=== PATIENT | male | born 1955 | race Caucasian/White ===

== ENCOUNTER 2021-11-12 14:38 | Observation (INO) | payer MEDICARE, OTHER, SELFPAY ==
[2021-11-12] VITALS (10 sets, daily range): BP systolic 127–152; BP diastolic 86–108; PULSE 74–87; RESP 14–20; TEMP 36.3–36.8; O2SAT 94–99; BMI 29.9
--- NOTE | ~2021-11-12 | XR_ITS ---
EXAMINATION: XR chest 1V portable DATE: 11/13/2021 10:51 INDICATION: Acute cholecystitis. Preop. TECHNIQUE: A single frontal view of the chest was obtained. COMPARISON: CT abdomen and pelvis 11/12/2021 FINDINGS: There is a 10 mm nodule in right lung upper lobe. There is a left posterior diaphragmatic h ernia that contained fat on the recent CT. No pleural effusion or pneumothorax. The heart size is nor mal. IMPRESSION: 1. 10 mm nodule in right lung upper lobe that is indeterminate for malignancy. Noncontrast chest CT i s recommended. Reviewed, dictated and finalized at location B. IMPRESSION: 1. 10 mm nodule in right lung upper lobe that is indeterminate for malignancy. Noncontrast chest CT is recommended.
--- NOTE | ~2021-11-12 | US_ITS ---
EXAMINATION: US carotid duplex BI DATE: 11/13/2021 12:54 INDICATION: Syncope. TECHNIQUE: Grayscale, color Doppler, and pulsed Doppler images of the cervical carotid arteries were obtained. The degree of vessel stenosis is placed in one of the following categories: normal, <50%, 5 0-69%, >=70% but less than near-occlusion, near-occlusion, or total occlusion. Note that percent sten osis relative to normal distal artery lumen diameter is indirectly measured from velocity measurement s as described by Jonh, et al. Radiology 2003; 229:340-346. COMPARISON: None. FINDINGS: RIGHT: The right common carotid artery (CCA) peak systolic velocity (PSV) is 88 cm/s. The right internal car otid artery (ICA) PSV is 75 cm/s. The right ICA end-diastolic velocity (EDV) is 36 cm/s. The right IC A/CCA PSV ratio is 0.9. Grayscale and color Doppler images yield an estimate of <50% diameter reducti on from plaque in the ICA. There is antegrade flow in the right vertebral artery. LEFT: The left CCA PSV is 86 cm/s. The left ICA PSV is 92 cm/s. The left ICA EDV is 46 cm/s. The left ICA/C CA PSV ratio is 1.1. Grayscale and color Doppler images yield an estimate of <50% diameter reduction from plaque in the ICA. There is antegrade flow in the left vertebral artery. IMPRESSION: 1. <50% stenosis in the right internal carotid artery. 2. <50% stenosis in the left internal carotid artery. Reviewed, dictated and finalized at location B.
--- NOTE | ~2021-11-12 | XR_ITS ---
EXAMINATION: 11/13/2021 15:38 DATE: 11/13/2021 15:47 CDT INDICATION: Cholecystectomy, intraoperative cholangiogram TECHNIQUE: Intraoperative cholangiogram with 1 contrast run(s) provided for review. FINDINGS: There is cannulation and contrast administration into the cystic duct remnant. There is no discrete filling defect in the common bile duct to suggest common bile duct stone. Contrast flows fr eely into the duodenum. IMPRESSION: 1. Patent cystic duct remnant and common bile duct, without common bile duct stone. Reviewed, dictated and finalized at location A. IMPRESSION: 1. Patent cystic duct remnant and common bile duct, without common bile duct s tone.
--- NOTE | ~2021-11-12 | CT_ITS ---
EXAMINATION: CT brain wo con DATE: 11/13/2021 12:25 INDICATION: Syncope. TECHNIQUE: Computed tomography (CT) of the head was performed without intravenous contrast. The mA wa s adjusted according to patient size. Iterative reconstruction technique was employed. The dose-lengt h product was 681.00 mGy-cm. COMPARISON: Head CT 11/29/2006 FINDINGS: There are scattered areas of low attenuation in the cerebral white matter, which is within normal limits for the patient's age. There is no intracranial hemorrhage, acute infarction, or abnorm al intracranial mass lesion. The ventricles are normal in size. The paranasal sinuses are clear. Ther e are likely changes of ocular lens replacement surgeries. The mastoid air cells are normal. IMPRESSION: 1. Normal aging brain. Reviewed, dictated and finalized at location B. IMPRESSION: 1. Normal aging brain.
--- NOTE | ~2021-11-12 | CT_ITS ---
EXAMINATION: CT abdomen pelvis w con DATE: 11/12/2021 17:23 INDICATION: RUQ abd pain TECHNIQUE: Computed tomography (CT) of the abdomen and pelvis was performed with 100 mL Omnipaque-300 intravenous contrast. Automated exposure control and iterative reconstruction technique were employe d. The dose-length product was 845.59 mGy-cm. COMPARISON: 02/27/2009. FINDINGS: Lower thorax: Unremarkable Liver: Left lobe hypodensity, too small to characterize but most likely representing a cyst. Biliary/Gallbladder: There is pericholecystic fluid and inflammatory change, with mucosal hyperemia. Dependent gallbladder sludge/stones. No bile duct dilation. Pancreas: No mass or duct dilation. Spleen: Normal. Adrenals:No mass. Kidneys: Bilateral hypodensities, too small to characterize but statistically most likely represent c ysts. Nonobstructing right mid pole calcification. No hydronephrosis. Mild perinephric stranding. GI tract: No small or large bowel dilation. Normal appendix. Mesentery/Peritoneum: No ascites, mass, or free air. Retroperitoneum: No mass. Abdominal atherosclerosis. Pelvis: Marked bladder distention, reasonably secondary to outlet obstruction. Soft Tissues: Soft tissues and body wall unremarkable. Bones: No acute osseous finding. IMPRESSION: CT findings suggestive of acute cholecystitis. Reviewed, dictated and finalized at location K.
[2021-11-12 15:02] LABS: Basophils Absolute Auto 0.1 K/mm3 (0.0-0.1); Basophils Percent Auto 0.7 % (0.2-1.2); Eosinophils Absolute Auto 0.1 K/mm3 (0-0.3); Eosinophils Percent Auto 1.9 % (0-4.4); Hematocrit 45.4 % (42.0-52.0); Hemoglobin 14.8 g/dL (14.0-18.0); Immature Granulocyte Absolute 0.04 K/mm3 (0.00-0.031); Immature Granulocyte Percent A 0.6 % (0-0.5); Lymphocytes Absolute Auto 1.57 K/mm3 (0.9-3.2); Lymphocytes Percent Auto 21.6 % (18.3-44.2); Mean Corpuscular HGB Conc 32.6 g/dl (32-36); Mean Corpuscular Hemoglobin 27.6 pg (26-34); Mean Corpuscular Volume 84.5 fl (80-100); Mean Platelet Volume 9.8 fl (7.4-10.4); Monocytes Absolute Auto 0.5 K/mm3 (0.1-0.6); Monocytes Percent Auto 6.3 % (2.6-8.5); Neutrophils Percent Auto 68.9 % (45.5-73.1); Platelet Count Result 229 k/mm3 (150-375); Red Blood Count 5.37 M/mm3 (4.6-6.20); White Blood Count 7.3 K/mm3 (4.5-10.0)
[2021-11-12 15:08] LABS: Appearance Urine Clear (Clear); Bilirubin Urine Negative (Negative); Blood Urine Negative (Negative); Color Urine Yellow (Yellow); Glucose Urine UA Negative (Negative); Ketones Urine Negative (Negative); Leukocyte Esterase Ur Negative LEU/UL (Negative); Nitrate Urine Negative (Negative); Protein Urine Negative (Negative); Urobilinogen Urine 0.2 mg/dL (<2.0)
[2021-11-12 15:13] LABS: Add Urine Microscopic? NO
[2021-11-12 15:14] LABS: Alanine Aminotransferase 18 U/L (6-50); Albumin Level 4.4 g/dL (3.5-5.1); Alkaline Phosphatase 82 U/L (38-126); Anion Gap 7 mmol/L (8-16); Aspartate Amino Transferase 25 U/L (17-59); Bilirubin,Total 1.6 mg/dL (0.2-1.3); Blood Urea Nitrogen 11 mg/dL (9-20); Calcium 8.9 mg/dL (8.4-10.2); Carbon Dioxide 27 mmol/L (22-30); Chloride 98 mmol/L (98-107); Estimated Glomerular Filt Rate > 60; Glucose 119 mg/dL (65-110); Lipase 50 U/L (23-300); Potassium 4.4 mmol/L (3.4-5.0); Sodium 132 mmol/L (137-145)
--- NOTE | 2021-11-12 15:17 | ECG_ITS ---
Measurements Intervals [place] Rate: 71 P: 66 ND: 193 QRS: 29 QRSD: 97 T: 59 QT: 356 QTc: 387 Interpretive Statements SINUS RHYTHM INCOMPLETE RIGHT BUNDLE BRANCH BLOCK BASELINE ARTIFACT- I, III, AVR, AVL, AVF, V3-V4 BORDERLINE ECG Electronically Signed On 11-12-2021 15:49:37 CDT by Pradeep Lei D.O.
--- NOTE | 2021-11-12 16:52 | ED.ABDPAIN ---
HPI - Abdominal Pain General Chief Complaint: Abdominal Pain Stated Complaint: ruq pain Time Seen by Provider: 11/12/21 16:39 Source: patient Mode of arrival: ambulatory Limitations: no limitations History of Present Illness HPI narrative: 66 y/o male presents to the ER today for RUQ abdominal pain that started yesterday. It was pretty sharp and intense yesterday. Today it is more tender sore. He has had feeling of dizziness and lightheadedness today. He has been drinking fluids but poor appetite for solid food. No fever or chills. No nausea or vomiting. He still has gallbladder. Denies history of abdominal surgeries. He denies chest pain. No palpitations. denies cough or shortness of breath. Related Data Allergies Allergy/AdvReac Type Severity Reaction Status Date / Time moxifloxacin Allergy Unknown Verified 11/12/21 18:16 Review of Systems Constitutional: Constitutional: Denies chills, Reports fatigue and Denies fever(s) Eyes: Eyes: Reports no additional eye complaints ENT: Reports dizziness and Denies sore throat Cardiovascular: Cardiovascular: Denies chest pain and Denies radiating jaw, neck or arm pain Respiratory: Respiratory: Denies cough, Denies dyspnea and Denies wheezing Gastrointestinal: Gastrointestinal: Reports abdominal pain, Denies constipation, Denies diarrhea, Denies nausea and Denies vomiting Genitourinary: Genitourinary: Denies hematuria and Denies dysuria Musculoskeletal: Musculoskeletal: Denies back pain Integumentary/Breasts: Skin/Breast: Denies rash Neurologic: Denies dizziness Psychiatric: Psychiatric: Denies anxiety and Denies depression Endocrine: Endocrine: Denies fatigue Hematologic/Lymphatic: Hematologic/Lymphatic: Reports no additional hematologic/lymphatic complaints Allergic/Immunologic: Allergic/Immunologic: Reports no additional allergic/immunologic complaints [facility] Past Medical History Medical History BPH (benign prostatic hyperplasia) Chronic neck pain GERD (gastroesophageal reflux disease) Hyperlipidemia Hypertension Surgical History Surgical History History of prostate surgery Social History Social History (Updated 11/12/21 @ 18:46 by Ary Rosenbaum APRN) Smoking status: Former smoker Tobacco type: cigarettes Second hand tobacco smoke exposure: No Smoking end date: 06/29/10 Alcohol intake: current Drinks per week: 14 Alcohol use details: drinks 2 melanie booth daily Substance use: never Living arrangements: alone Exam Const: General: no acute distress and alert Orientation/consciousness: patient oriented x3 HENMT: Head: normal to inspection Eyes: Conjunctivae: conjunctivae normal Pupils: Equal, round and reactive pupils present Neck: Neck: normal visual inspection Chest: Chest palpation & inspection: normal inspection of the chest Resp: Effort & Inspection: normal respiratory effort Auscultation: clear to auscultation bilaterally Cardio: Rate: regular rate Rhythm: regular rhythm GI: GI Palp: Yes Soft to palpation, Yes Tenderness to palpation present (GI) (RUQ tenderness) and Yes Guarding due to palpation present (GI) : Testes: Testes normal Back/Spine/Pelvis: Back: no CVA tenderness Skin: General skin exam: normal color Neuro: General: patient oriented x3 and moves all extremities Extrem: General: normal to inspection Psych: Mental Status: mental status grossly normal Affect: normal affect Course Course Emergency Course: 1800 Discussed with general trivedi, Dr. Meyers, would like patient admitted to hospitalist service, clear liquids tonight then NPO after midnight. Pt updated on plan. 1814 [place] does not have beds. Okay to admit here. 1829 Discussed with Aleyda Dooley, accepting patient for observation admission for Dr. Thurman, acute cholecystitis. Vital Signs Vital signs: Marily
[2021-11-12] MEDS: SODIUM CHLORIDE 0.9% IV 1,000 ML 125 ML IV CONT (20:33)
--- NOTE | 2021-11-12 21:58 | ADMGEN ---
This patient, Jason Richards, was admitted to 3 [facility] Surg Room 309-01. Patient/family oriented to hospital policies and general routines including ID bracelet, bed and alarms, visiting hours, pain management, procedures, bathroom and other care routines, personal items, smoking policy, room service/diet, and visiting hours. Information on how to activate the Rapid Response Team has been discussed. Patient/Family are encouraged to report perceived risks to care and to ask questions if they do not understand what they are told or what they should do.
[2021-11-13] VITALS (19 sets, daily range): BP systolic 97–184; BP diastolic 64–99; PULSE 64–104; RESP 11–20; TEMP 36.2–36.8; O2SAT 90–99
--- NOTE | 2021-11-13 | ECHO_ITS ---
Patient Info Name: Jason Richards Age: 66 years : 1955 Gender: Male Ht: 68 in Wt: 196 lbs BSA: 2.09 m2 HR: 78 bpm BP: 130 / 89 mmHg Technical Quality: Fair Exam Date: 11/13/2021 1:17 PM Exam Location: [facility] Exam Room: 309 Patient Status: Inpatient Admit Date: 11/12/2021 Staff Ordering Physician: Florencia Rivera PA-C Drain Layer: Rosalia Benito RDCS Attending Provider: Florencia Rivera PA-C Referring Physician: Miguel MCKEON; Exam Type: CA echo doppler color flow Study Info Indications - SYNCOPE PRE OP Complete two-dimensional, color flow and Doppler transthoracic echocardiogram is performed. Summary 1. Complete two-dimensional, color flow and Doppler transthoracic echocardiogram is performed. 2. Left ventricular chamber dimension is normal. 3. Left ventricular systolic function is normal, estimated at 60-65%. 4. The left ventricular diastolic function is grade I diastolic dysfunction. 5. E/e' 7 is not elevated. Left Ventricle E/e' 7 is not elevated. Left ventricular chamber dimension is normal. Left ventricular systolic function is normal, estimated at 60-65%. The left ventricular diastolic function is grade I diastolic dysfunction. Right Ventricle Right ventricular chamber dimension is normal. Right ventricular systolic function is normal. Left Atria Left atrial chamber dimension is normal. Right Atria Right atrial chamber dimension is normal. Aortic Valve The aortic valve is trileaflet. There is no aortic valve stenosis. There is no aortic valve regurgitation. Pulmonic Valve There is no pulmonic regurgitation. Mitral Valve There is no mitral valve stenosis. There is no mitral valve regurgitation. Tricuspid Valve There is no tricuspid valve regurgitation. Pericardium/Pleural There is no pericardial effusion. Inferior Vena Cava Normal inferior vena cava with >50% collapse upon inspiration consistent with normal right atrial pressure, 5 mmHg. Aorta The aortic root size at the sinus of Valsalva is normal. Left Ventricular Outflow Tract Name Value Normal LVOT 2D LVOT Diameter 2.1 cm LVOT Doppler LVOT Peak Gradient 5 mmHg LVOT Mean Gradient 3 mmHg LVOT VTI 25 cm LVOT VTI/AV VTI Ratio 0.7 LVOT Stroke Volume 85 ml LVOT CO 14.9 l/min LVOT CI 7.1 l/min/m2 Pulmonic Valve Name Value Normal PV Doppler PV Peak Gradient 2 mmHg Mitral Valve Name Value Normal MV Doppler --
--- NOTE | 2021-11-13 02:08 | PC.NURSE ---
Patient educated on the importance of fall prevention while hospitalized. Waterproofer Helper discussed with patient his verbalization of being dizzy on admission and therefore should have proper fall precautions in place, which would include the use of a bed alarm. After multiple conversations the patient denies any dizziness or being light headed. Patient verbally refuses bed alarm. Patient was educated on the call light and the importance of calling the staff for assistance when ambulating.
[2021-11-13] MEDS: SODIUM CHLORIDE 0.9% IV 1,000 ML 125 ML IV CONT (05:12)
--- NOTE | 2021-11-13 09:26 | PM.IMHP ---
H&P: HPI History of Present Illness Date/Time: 11/13/21 09:26 Chief Complaint: abdominal pain Narrative: Pt is a 66 yo male w/ hx of HTN, HLD, GERD, BPH, who presented to the ED for RUQ pain x 4 days. He describes the pain as achey in nature and it has been waxing and waning. Non radiating. Does not seem to be associated with meals however he notes decreased appetite. He has been trying to drink water but states he has not eaten much and did not eat anything yesterday. He states yesterday while sitting on his couch he felt dizzy and light headed. He reports diarrhea ever since taking Miralax 5 days ago. No nausea, vomiting, fevers, chills. CT abd/pelv in the ED significant for acute cholecystitis. Patient is being admitted as observation status in this setting. Review of Systems Review of Systems: General: Denies fevers Eyes: Denies vision changes ENT: Denies nasal congestion or sore throat Respiratory: Denies cough or shortness of breath Cardiovascular: Denies chest pain or lower extremity edema Gastrointestinal: + abdominal pain and diarrhea Genitourinary: Denies dysuria Musculoskeletal: Denies back pain, +chronic neck pain Neurological: Denies headache or motor weakness Integumentary: Denies rash PMFSH Past Medical History Medical History (Updated 11/13/21 @ 09:34 by Florencia Rivera PA-C) BPH (benign prostatic hyperplasia) Chronic neck pain GERD (gastroesophageal reflux disease) Hyperlipidemia Hypertension Surgical History Surgical History History of prostate surgery Family History Family History Mother Cancer Social History Social History Smoking packs per day: 1.5 Smoking cigarettes per day: 30.0 Smoking status: Former smoker Tobacco type: cigarettes Second hand tobacco smoke exposure: No Smoking end date: 06/29/10 Alcohol intake: current Drinks per week: 1 Alcohol use details: drinks 2 peppermint schnapps daily Substance use: never Living arrangements: alone Spiritual care concerns: No Meds Home Medications and Allergies Home Medications Medication Instructions Recorded Confirmed Type carvedilol 50 mg PO BID 11/12/21 11/12/21 History celecoxib 200 mg PO DAILY 11/12/21 11/12/21 History cyclobenzaprine 10 mg PO TID 11/12/21 11/12/21 History docusate sodium 100 mg PO DAILY 11/12/21 11/12/21 History finasteride 5 mg PO DAILY 11/12/21 11/12/21 History lidocaine 1 patch TOPICAL DAILY 11/12/21 11/12/21 History nifedipine 30 mg PO DAILY 11/12/21 11/12/21 History pantoprazole 20 mg PO HS 11/12/21 11/12/21 History rosuvastatin 40 mg PO DAILY 11/12/21 11/12/21 History tamsulosin 0.8 mg PO DAILY 11/12/21 11/12/21 History Allergies Allergy/AdvReac Type Severity Reaction Status Date / Time moxifloxacin Allergy Unknown Verified 11/12/21 18:16 Vital Signs Vital Signs - 24 hr 11/12/21 14:40 11/12/21 15:15 11/12/21 16:41 Temperature 97.4 F L Pulse Rate 80 76 81 Respiratory Rate 14 16 16 Blood Pressure 136/103 H 141/86 H 130/108 H Pulse Oximetry 99 95 98 11/12/21 16:44 11/12/21 16:45 11/12/21 16:46 Temperature Pulse Rate 77 75 74 Respiratory Rate 20 18 16 Blood Pressure 130/108 H Pulse Oximetry 11/12/21 18:48 11/12/21 20:30 11/12/21 20:40 Temperature 98.2 F Pulse Rate 85 74 87 Respiratory Rate 18 18 Blood Pressure 152/89 H 127/96 H Pulse Oximetry 97 94 94 11/12/21 20:54 11/13/21 06:00 Temperature 97.4 F L Pulse Rate 87 82 Respiratory Rate 18 Blood Pressure 130/89 Pulse Oximetry 94 95 Exam Narrative: General: No acute distress, non toxic appearing Eyes: PERRL, no scleral icterus HEENT: NCAT, external ears normal, dry mucous membranes, edentulous Respiratory: No respiratory distress, Lungs CTA bilaterally, no wheezing Cardi[facility]
[2021-11-13 09:27] LABS: Basophils Absolute Auto 0.1 K/mm3 (0.0-0.1); Basophils Percent Auto 0.8 % (0.2-1.2); Eosinophils Absolute Auto 0.2 K/mm3 (0-0.3); Eosinophils Percent Auto 2.4 % (0-4.4); Hematocrit 45.2 % (42.0-52.0); Hemoglobin 14.8 g/dL (14.0-18.0); Immature Granulocyte Absolute 0.04 K/mm3 (0.00-0.031); Immature Granulocyte Percent A 0.6 % (0-0.5); Lymphocytes Absolute Auto 1.46 K/mm3 (0.9-3.2); Lymphocytes Percent Auto 23.6 % (18.3-44.2); Mean Corpuscular HGB Conc 32.7 g/dl (32-36); Mean Corpuscular Volume 85.6 fl (80-100); Mean Platelet Volume 9.6 fl (7.4-10.4); Monocytes Absolute Auto 0.5 K/mm3 (0.1-0.6); Monocytes Percent Auto 7.4 % (2.6-8.5); Neutrophils Percent Auto 65.2 % (45.5-73.1); Platelet Count Result 204 k/mm3 (150-375); Red Blood Count 5.28 M/mm3 (4.6-6.20); Red Cell Distribution Width 13.1 % (11.5-14.5); White Blood Count 6.2 K/mm3 (4.5-10.0)
[2021-11-13 09:51] LABS: Alanine Aminotransferase 17 U/L (6-50); Albumin Level 4.1 g/dL (3.5-5.1); Alkaline Phosphatase 82 U/L (38-126); Anion Gap 7 mmol/L (8-16); Aspartate Amino Transferase 30 U/L (17-59); Bilirubin,Total 1.9 mg/dL (0.2-1.3); Blood Urea Nitrogen 10 mg/dL (9-20); Calcium 8.2 mg/dL (8.4-10.2); Carbon Dioxide 25 mmol/L (22-30); Chloride 103 mmol/L (98-107); Estimated CRCL calculation 85 ml/min; Estimated Glomerular Filt Rate > 60; Glucose 104 mg/dL (65-110); Potassium 4.3 mmol/L (3.4-5.0); Sodium 135 mmol/L (137-145)
[2021-11-13] MEDS: ROSUVASTATIN 10 MG TABLET 40 MG PO (10:29)
[2021-11-13] MEDS: NIFEdipine 30 MG TAB.ER.24 PO (10:30)
[2021-11-13] MEDS: FINASTERIDE 5 MG TABLET PO (10:30)
[2021-11-13] MEDS: TAMSULOSIN HCL 0.4 MG CAPSULE 0.8 MG PO (10:30)
[2021-11-13] MEDS: carvediloL 25 MG TABLET 50 MG PO ×2 (10:30→20:45)
--- NOTE | 2021-11-13 11:18 | PM.CNGS ---
Assessment and Plan Assessment and plan (1) Acute cholecystitis: Code(s): K81.0 - Acute cholecystitis Status: Acute Assessment and Plan: CT scan reviewed and discussed with the patient in detail. There is evidence of acute cholecystitis, no evidence of choledocholithiasis or bile duct dilatation. His abdominal pain has improved, but he is still fairly sore and tender on exam. WBC count is normal. LFTs are normal, other than his total bilirubin of 1.6. We discussed treatment options thoroughly, including the option of proceeding with a laparoscopic cholecystectomy, possible open, with intraoperative cholangiogram by Dr. Meyers under general anesthesia. Description of the procedure, risks, benefits, expected outcomes, and expected recovery were discussed with the patient in detail. All questions were answered. The patient would like to go forward with surgery. Continue IV Zosyn, IV fluids, NPO status, and analgesics as needed. If there is no arrhythmias noted on telemetry, then we will plan to proceed with surgery today. (2) Dizziness: Code(s): R42 - Dizziness and giddiness Status: Acute Assessment and Plan: This is the reason the patient came into the ER. This has resolved and has not returned since being admitted. He also admits to two syncopal episodes at home over the past 6 months that has been worked up through his PCP. He is hemodynamically stable and is not having any other symptoms. Discussed this with the Hospitalist. They will be ordering a chest x-ray additionally and putting him on telemetry for pre-operative work-up, but otherwise do not feel he needs any further work-up prior to proceeding. (3) BPH (benign prostatic hyperplasia): Code(s): N40.0 - Benign prostatic hyperplasia without lower urinary tract symptoms Status: Chronic (4) Hypertension: Code(s): I10 - Essential (primary) hypertension Status: Chronic Additional Plan I have discussed the patient's case and plan of care with Dr. Meyers. Thank you for allowing us to see the patient in consultation and we will continue to follow along with you. History of Present Illness Consult details Consult date: 11/13/21 Reason for consult: other (Acute calculous cholecystitis) Requesting physician: Ary Rosenbaum APRN Narrative: This is a 66-year-old male who presented to the emergency department yesterday with complaints of dizziness and lightheadedness. He reports that over the past few days he has had some right upper quadrant abdominal pain. The onset of this pain came on suddenly around 3:00 a.m. Thursday, 4 days ago. This woke him up from sleep. He had eaten a chicken and shrimp spaghetti meal for dinner the night before. He tried drinking some chocolate milk and felt that his pain improved. He was able to go back to sleep and felt more comfortable. No nausea or vomiting. Through the weekend, he continued to have soreness in the right upper quadrant and was fairly tender when he would push on this area of his abdomen, but seemed to improve compared to Thursday. He did eat 2 meals Thursday and Thursday, without this aggravating his pain. Denies fever or chills. He has never had this pain before. The patient reports sitting on the couch yesterday around 10:00 a.m. and he was playing a game on his phone. He had a sudden onset of dizziness and felt like he was going to pass out. He called the [facility] and they recommended he go to the ER. The dizziness is what prompted his visit to the ER yesterday because he was concerned this could be related to his abdominal pain he had been experiencing. CT scan of the abdomen and pelvis showed findings of acute cholecystitis with gallstones and sludge in the gallbladder. No evidence of dilation of the bile ducts. Labs showed a white blood cell count of 7300, total bilirubin of 1.6, and otherwise unremarkable labs. The patient was admitted for acute cholecystitis. He was started on IV
[2021-11-13] MEDS: CHLORHEXIDINE GLUCONATE 4% SOL 120 ML BTL 1 APPLIC TOPICAL (13:31)
--- NOTE | 2021-11-13 14:30 | WPDANESEPPF ---
Anes - Initial Pre Proc Eval Procedure: Operation Date: 11/13/21 15:00 Proposed Procedures p Laparoscopic Cholecystectomy With Intraoperative Cholangiogram, Possible Open - Vince Meyers DO Date/Time: 11/13/21 14:30 Surgeon: Florencia Rivera PA-C Pre Op Diagnosis: Acute Cholecystitis Patient Data Age: 66 Gender: M Height: 1.73 m Weight: 89.2 kg Last Vital Signs Temp 36.6 C 11/13/21 13:27 Pulse 79 11/13/21 13:27 Resp 16 11/13/21 13:27 BP 136/99 H 11/13/21 13:27 Pulse Ox 96 11/13/21 13:27 Allergies Allergy/AdvReac Type Severity Reaction Status Date / Time moxifloxacin Allergy Unknown Verified 11/12/21 18:16 Home Medications Medication Instructions Recorded Confirmed Type carvedilol 50 mg PO BID 11/12/21 11/12/21 History celecoxib 200 mg PO DAILY 11/12/21 11/12/21 History cyclobenzaprine 10 mg PO TID 11/12/21 11/12/21 History docusate sodium 100 mg PO DAILY 11/12/21 11/12/21 History finasteride 5 mg PO DAILY 11/12/21 11/12/21 History lidocaine 1 patch TOPICAL DAILY 11/12/21 11/12/21 History nifedipine 30 mg PO DAILY 11/12/21 11/12/21 History pantoprazole 20 mg PO HS 11/12/21 11/12/21 History rosuvastatin 40 mg PO DAILY 11/12/21 11/12/21 History tamsulosin 0.8 mg PO DAILY 11/12/21 11/12/21 History Laboratory Tests 11/12/21 11/12/21 11/12/21 14:52 14:52 14:59 WBC 7.3 K/mm3 K/mm3 (4.5-10.0) RBC 5.37 M/mm3 M/mm3 (4.6-6.20) Hgb 14.8 g/dL g/dL (14.0-18.0) Hct 45.4 % % (42.0-52.0) MCV 84.5 fl fl (80-100) MCH 27.6 pg pg (26-34) MCHC 32.6 g/dl g/dl (32-36) RDW 13.0 % % (11.5-14.5) Plt Count 229 k/mm3 k/mm3 (150-375) MPV 9.8 fl fl (7.4-10.4) Immature Gran % (Auto) 0.6 % H % (0-0.5) Neut % (Auto) 68.9 % % (45.5-73.1) Lymph % (Auto) 21.6 % % (18.3-44.2) Clay % (Auto) 6.3 % % (2.6-8.5) Eos % (Auto) 1.9 % % (0-4.4) Baso % (Auto) 0.7 % % (0.2-1.2) Lymph # (Auto) 1.57 K/mm3 K/mm3 (0.9-3.2) Clay # (Auto) 0.5 K/mm3 K/mm3 (0.1-0.6) Eos # (Auto) 0.1 K/mm3 K/mm3 (0-0.3) Baso # (Auto) 0.1 K/mm3 K/mm3 (0.0-0.1) Abs Immat Gran (auto) 0.04 K/mm3 H K/mm3 (0.00-0.031) Absolute Neuts (auto) 5.0 K/mm3 K/mm3 (1.3-6.7) Absolute Nucleated RBC 0.0 K/mm3 K/mm3 (0.0-0.012) Nucleated RBC % 0.0 % % (0.0-0.2) Sodium 132 mmol/L L mmol/L (137-145) Potassium 4.4 mmol/L mmol/L (3.4-5.0) Chloride 98 mmol/L mmol/L (98-107) Carbon Dioxide 27 mmol/L mmol/L (22-30) Anion Gap 7 mmol/L L mmol/L (8-16) BUN 11 mg/dL mg/dL (9-20) Creatinine 0.80 mg/dL mg/dL (0.7-1.3) Estim Creat Clear Calc Not Reportable Estimated GFR > 60 (59 - ) Glucose 119 mg/dL H mg/dL (65-110) Calcium 8.9 mg/dL mg/dL (8.4-10.2) Total Bilirubin 1.6 mg/dL H mg/dL (0.2-1.3) AST 25 U/L U/L (17-59) ALT 18 U/L U/L (6-50) Alkaline Phosphatase 82 U/L U/L (38-126) Total Protein 8.0 g/dL g/dL (6.3-8.2) Albumin 4.4 g/dL g/dL (3.5-5.1) Lipase 50 U/L U/L (23-300) Urine Color Yellow (Yellow) Urine Appearance Clear (Clear) Urine pH 7.0 (5.0-9.0) Ur Specific [place] 1.010 (1.001-1.035) Urine Protein Negative mg/dL mg/dL (Negative) Urine Glucose (UA) Negative mg/dL mg/dL (Negative) Urine Ketones Negative mg/dL mg/dL (Negative) Ur Blood (Man) Negative (Negative) Urine Nitrate Negative (Negative) Urine Bilirubin Negative (Negative) Urine Urobilinogen 0.2 mg/dL mg/dL (<2.0) Leukocyte Esterase Rfl Negative BETY/UL BETY/UL (Negative) B
[2021-11-13] MEDS: ACETAMINOPHEN 500 MG TABLET 1000 MG PO (14:31)
[2021-11-13] MEDS: KETOROLAC 15 MG/ML VIAL (*BKC) IV PUSH (14:32)
[2021-11-13] MEDS: LACTATED RINGERS 1,000 ML 30 ML IV CONT (14:33)
--- NOTE | 2021-11-13 14:44 | WPDHPUPDATE1 ---
History and Physical Update Update Date/Time: 11/13/21 14:44 History and Physical has been reviewed, including an updated exam of the patient. There are NO changes in the patient's condition. Risks, benefits, and alternatives have been discussed and questions answered. Patient agrees to proceed with procedure.
--- NOTE | 2021-11-13 15:49 | W.PM.PROC2 ---
Procedure Note - Detailed Date of Procedure 11/13/21 Pre-op Diagnosis Acute Cholecystitis Post-op Diagnosis Same Procedure Performed Laparoscopic Cholecystectomy with Intraoperative Cholangiogram Surgeon Vince Meyers, DO Anesthesia General and Local (0.5% bupivacaine) Indications This is a 66-year-old man who presented with right upper quadrant pain for the past 3 days. He denies any prior episodes like this in the past. He was found to have evidence of acute cholecystitis on CT and his bilirubin was slightly elevated at 1.6. Discussions were made with the patient about treatment options and decision was made to proceed with laparoscopic cholecystectomy with intraoperative cholangiogram, possible open. Findings Laparoscopic cholecystectomy was performed. The gallbladder did have some induration and edema. The cystic duct appeared normal in size. Intraoperative cholangiogram was obtained using Omnipaque contrast. The biliary system was visualized with no evidence of filling defects or obstruction. The gallbladder was removed and sent to the lab for pathology. Description of Procedure Procedure as well as risks, benefits, and alternatives were discussed with patient. Written consent was obtained and placed in chart prior to procedure. The patient was brought back to surgical suite. Patient was placed in supine position on operating table. Time-out was done to confirm patient and procedure. Patient was then intubated by the anesthesia department. Abdomen was prepped and draped in sterile fashion using chlorhexidine prep. 0.5% bupivacaine with epinephrine was infiltrated at each site of incision. A 5 millimeter incision was made near the umbilicus, and a 5 millimeter Optiview trocar was advanced through the abdominal layers under direct visualization. Once inside the abdominal cavity, carbon dioxide was insufflated to create a pneumoperitoneum. The camera was inserted and the abdomen was inspected. No immediate abnormalities were identified. The patient was placed in reverse Trendelenburg position and rotated slightly to the left. An 11 millimeter incision was made in the subxiphoid region, and an 11 millimeter trocar was inserted under direct visualization. Two 5 millimeter incisions were made in the right upper quadrant, and two 5 millimeter trocars were inserted under direct visualization. The gallbladder was identified and grasped at the fundus and retracted superiorly. It was then grasped at the infundibulum retracted laterally. Careful dissection around the neck of the gallbladder was performed using blunt dissection with a [place] grasper and hook electrocautery. The cystic duct was identified, and a window was created behind it. The cystic artery was also identified and a window was created behind it. The critical view of safety was identified, visualizing the cystic duct running directly into the neck of the gallbladder, and the cystic artery running directly into the wall of the gallbladder. A 5 millimeter clip panelboard operator was then used to place 2 clips proximally and 1 clip distally on the cystic artery. It was then transected using endoscopic scissors. A Modi clamp was then placed across the neck of the gallbladder and the Modi cholangiocatheter was then advanced into the distal neck of the gallbladder. The catheter flushed with saline with ease. The patient was then flattened out in bed and cholangiogram was obtained using Omnipaque contrast and fluoroscopy. The images were sent to Radiology for interpretation. The patient was then placed back in reverse Trendelenburg position. A 5 mm Endoclip panelboard operator was used to place 2 clips proximally and 1 clip distally on the cystic duct. It was then transected using endoscopic scissors. Once safely away from the frank hepatitis, the gallbladder was dissected free from the liver bed using hook electrocautery. Hemostasis was achieved along the way. The gallbladder was removed completely a
[2021-11-13] MEDS: fentaNYL CITRATE INJ (*CRX) 100 MCG/2 ML VIAL 25 MCG IV PUSH ×4 (16:19→16:39)
--- NOTE | 2021-11-13 16:57 | SUR.PHASEI ---
1650 pt complaints difficulty inhaling,elevated head of bed. noted large abdomen.. dr byrne at side and auscultated lung taylor,clear. o2 sat 97% on room air. okay for discharge to room.
[2021-11-13] MEDS: PANTOPRAZOLE SOD SESQUIHYDRATE 20 MG TAB PO (20:45)
[2021-11-13] MEDS: HYDROcodone/acetaminophen (*CRX) 5-325 MG TABLET 1 TAB PO (21:04)
[2021-11-14] VITALS (7 sets, daily range): BP systolic 112–133; BP diastolic 80–90; PULSE 76–89; RESP 16–18; TEMP 36.3; O2SAT 95–99
[2021-11-14 06:49] LABS: Basophils Percent Auto 0.2 % (0.2-1.2); Hematocrit 43.4 % (42.0-52.0); Immature Granulocyte Absolute 0.06 K/mm3 (0.00-0.031); Immature Granulocyte Percent A 0.6 % (0-0.5); Lymphocytes Absolute Auto 0.99 K/mm3 (0.9-3.2); Lymphocytes Percent Auto 9.2 % (18.3-44.2); Mean Corpuscular HGB Conc 32.3 g/dl (32-36); Mean Corpuscular Hemoglobin 27.9 pg (26-34); Mean Corpuscular Volume 86.6 fl (80-100); Monocytes Absolute Auto 0.4 K/mm3 (0.1-0.6); Monocytes Percent Auto 3.5 % (2.6-8.5); Neutrophils Absolute Auto 9.3 K/mm3 (1.3-6.7); Neutrophils Percent Auto 86.5 % (45.5-73.1); Platelet Count Result 210 k/mm3 (150-375); Red Blood Count 5.01 M/mm3 (4.6-6.20); Red Cell Distribution Width 12.9 % (11.5-14.5); White Blood Count 10.8 K/mm3 (4.5-10.0)
[2021-11-14 07:00] LABS: Alanine Aminotransferase 47 U/L (6-50); Albumin Level 3.9 g/dL (3.5-5.1); Alkaline Phosphatase 88 U/L (38-126); Anion Gap 9 mmol/L (8-16); Aspartate Amino Transferase 66 U/L (17-59); Bilirubin,Total 1.5 mg/dL (0.2-1.3); Blood Urea Nitrogen 9 mg/dL (9-20); Carbon Dioxide 20 mmol/L (22-30); Chloride 102 mmol/L (98-107); Estimated CRCL calculation 85 ml/min; Estimated Glomerular Filt Rate > 60; Glucose 115 mg/dL (65-110); Potassium 4.2 mmol/L (3.4-5.0); Sodium 131 mmol/L (137-145)
[2021-11-14] MEDS: NIFEdipine 30 MG TAB.ER.24 PO (09:26)
[2021-11-14] MEDS: ROSUVASTATIN 10 MG TABLET 40 MG PO (09:26)
[2021-11-14] MEDS: FINASTERIDE 5 MG TABLET PO (09:26)
[2021-11-14] MEDS: carvediloL 25 MG TABLET 50 MG PO (09:27)
[2021-11-14] MEDS: TAMSULOSIN HCL 0.4 MG CAPSULE 0.8 MG PO (09:27)
--- NOTE | 2021-11-14 10:45 | PM.PNGS ---
Progress Note: A&P Assessment and Plan (1) Acute cholecystitis: Code(s): K81.0 - Acute cholecystitis Status: Acute Assessment and Plan: Doing well POD#1. Pain well controlled. Tolerating his diet. Okay to discharge from a surgical standpoint. Continue low fat diet. Follow-up with Dr. Meyers in 2 weeks. (2) Dizziness: Code(s): R42 - Dizziness and giddiness Status: Acute Assessment and Plan: No issues since surgery. F/u with PCP. Additional Plan I have discussed the patient's case and plan of care with Dr. Meyers. Subjective Subjective Date/Time Seen: 11/14/21 10:45 Post Op day: 1 (Laparoscopic cholecystectomy) Patient reports: tolerating liquids well, flatus, no bowel movement and afebrile Interval history: Patient seen and examined this morning. He reports soreness at his incisions, but well controlled. He had [employer] last night before bed and felt that helped significantly. Denies any more dizziness or lightheadedness. No nausea or other complaints at this time. Review of Systems Review of Systems: All systems reviewed & are unremarkable except as noted in HPI and below Exam Const: General: comfortable, no acute distress, alert and awake Orientation/consciousness: patient oriented x3 GI: Inspection: non-distended and incision (Abdominal incisions dry and intact.) GI Palp: Yes Soft to palpation and Yes Tenderness to palpation present (GI) (incisional) Auscultation: normal bowel sounds Neuro: General: moves all extremities and no focal motor deficits Extrem: General: no clubbing, cyanosis or edema and no calf tenderness Psych: Insight: Good insight present (Psych) Judgement: Good judgement present (Psych) Objective Data Vital Signs Vital Signs: Vital Signs - 24 hr 11/13/21 12:00 11/13/21 13:27 11/13/21 14:30 Temperature 97.8 F 98.2 F Pulse Rate 68 79 81 Respiratory Rate 16 18 Blood Pressure 136/99 H 184/89 H Pulse Oximetry 96 97 11/13/21 15:50 11/13/21 16:05 11/13/21 16:20 Temperature 97.1 F L Pulse Rate 64 75 70 Respiratory Rate 12 18 11 L Blood Pressure 104/64 110/80 121/76 Pulse Oximetry 99 98 96 11/13/21 16:35 11/13/21 16:50 11/13/21 17:05 Temperature Pulse Rate 78 79 79 Respiratory Rate 15 15 14 Blood Pressure 111/73 117/81 116/70 Pulse Oximetry 96 96 99 11/13/21 17:20 11/13/21 17:34 11/13/21 17:49 Temperature 97.4 F L 97.7 F Pulse Rate 67 82 84 Respiratory Rate 11 L 20 18 Blood Pressure 97/71 L 126/81 139/97 H Pulse Oximetry 99 92 92 11/13/21 18:19 11/13/21 19:19 11/13/21 20:00 Temperature 98 F 97.9 F Pulse Rate 93 94 104 H Respiratory Rate 20 20 Blood Pressure 127/87 118/91 H Pulse Oximetry 93 90 11/13/21 20:45 11/13/21 22:07 11/14/21 03:19 Temperature 98.1 F 97.3 F L Pulse Rate 90 86 79 Respiratory Rate 20 18 Blood Pressure 109/86 112/80 Pulse Oximetry 91 95 11/14/21 04:00 11/14/21 06:33 11/14/21 09:24 Temperature 97.3 F L Pulse Rate 76 77 76 Respiratory Rate 18 Blood Pressure 130/90 133/90 Pulse Oximetry 98 97 Intake/Output Intake/Output: Intake & Output 11/11/21 11/12/21 11/13/21 11/14/21 23:59 23:59 23:59 23:59 Intake Total 50 1790 290 Output Total 800 Balance 50 990 290 Meds/Results Medications: Active Medications Generic Name Dose Route Start Last Admin Trade Name Freq PRN Reason Stop Dose Admin Hydrocodone Bitart/Acetaminophen 1 tab 11/13/21 17:34 11/13/21 21:04 Hydrocodone/Acetaminophen (*Crx) 5-325 Mg Tablet PO 1 tab Q4H PRN Administration Pain Rated 4-6 Hydrocodone Bitart/Acetaminophen 1 tab 11/13/21 17:34 Hydrocodone/Acetaminophen (*Crx) 7.5-325 Mg Tablet PO Q4H PRN Pain Rated 7-10 Carvedilol 50 mg 11/13/21 09:15 11/14/21 09:27 Carvedilol 25 Mg Tablet PO 50 mg Q12HR RAHUL Administration Cyclobenzaprine HCl 20 mg 05/18/22 09:02 Cyclobenzaprine Hcl 10 Mg Tablet PO HS PRN Pain Cyclobenzaprine
--- NOTE | 2021-11-14 10:53 | PM.DS ---
DS: Admitting Diagnosis Discharge Date 11/14/21 Admitting Diagnosis cholecystitis DS: Discharge Diagnosis Discharge Diagnosis (1) Acute cholecystitis: Code(s): K81.0 - Acute cholecystitis Status: Acute Assessment and Plan: -as seen on CT abd/pelv -no leukocytosis, tachycardia, or fever to suggest sepsis -POD#1 doing well, vitals stable, minimal pain -Per surgery stable for discharge -Follow up instructions per surgery (2) Hypertension: Code(s): I10 - Essential (primary) hypertension Status: Chronic Assessment and Plan: -stable -continued home meds (3) GERD (gastroesophageal reflux disease): Code(s): K21.9 - Gastro-esophageal reflux disease without esophagitis Status: Inactive Assessment and Plan: -no acute issues -continued protonix (4) BPH (benign prostatic hyperplasia): Code(s): N40.0 - Benign prostatic hyperplasia without lower urinary tract symptoms Status: Chronic Assessment and Plan: -continued flomax and finasteride -some hesitancy but at his baseline currently (5) Chronic neck pain: Code(s): M54.2 - Cervicalgia; G89.29 - Other chronic pain Status: Inactive Assessment and Plan: -continued flexeril TID prn (6) Dizziness: Code(s): R42 - Dizziness and giddiness Status: Acute Assessment and Plan: Spoke w/ general surgery [employer]. Apparently patient told her that he came in due to the dizziness, not his abdominal pain, which is a different story than he gave me. Furthermore, he also told her he has had two syncopal episodes out of nowhere in the past 6 months but it is unclear how long ago the most recent episode was. He did not have an episode of syncope yesterday, rather just had dizziness and light headedness which could very well be attributed to decreased PO intake secondary to his acute cholecystitis as he states he did not eat anything yesterday. That being said, I ordered a stat CT head, echo, and carotid doppler US to evaluate for preop clearance. Patient was also placed on telemetry to monitor for any arrhythmias. Patient remains asymptomatic today aside from his abdominal pain. No dizziness, headache, vision changes, paraesthesias, motor weakness, cp, sob. CT head, echo, and carotid doppler unremarkable. Pt to follow up with his pcp if he has any additional episodes of syncope. DS: Summary Hospital Course Reason for hospitalization: Pt is a 66 yo male w/ hx of HTN, HLD, GERD, BPH, who presented to the ED for abdominal pain and was admitted for acute cholecystitis. Please see HPI for further details. Hospital Course: Please see above for details of hospital course. Status at Discharge Cognitive/behavioral status at discharge: stable Functional status at discharge: independent ambulation Time Spent with Patient Time attestation: Total time spent providing and/or coordinating discharge services: 32 Time spent: Greater than 30 minutes Exam Narrative: General: No acute distress, non toxic appearing Eyes: PERRL, no scleral icterus HEENT: NCAT, external ears normal, dry mucous membranes, edentulous Respiratory: No respiratory distress, Lungs CTA bilaterally, no wheezing Cardiovascular: RRR, no murmur Abdominal: Soft, non tender, non distended, no rebound or guarding, incisions c/d/i Musculoskeletal: Moves all 4 extremities, no edema Neurological: A/Ox3, speech clear, no facial asymmetry Skin: Warm, dry, no rashes Psychiatric: Normal affect, normal mood DS: Data Data Completed and Pending Pending studies at discharge: Pending at discharge 11/13/21 15:33 Surgical [PTH] Routine Labs on day of discharge: Labs from last 24 hours 11/14/21 11/14/21 11/13/21 06:08 06:08 09:19 WBC 10.8 H RBC 5.01 Hgb 14.0 Hct 43.4 MCV 86.6 MCH 27.9 MCHC 32.3 RDW 12.9 Plt Count 210 MPV 10.0 Immature Gran % (Auto)
[2021-11-14] MEDS: HYDROcodone/acetaminophen (*CRX) 5-325 MG TABLET 1 TAB PO (13:31)
== END 2021-11-14 15:15 | disposition home or self-care (01) ==
LOC: ANHED 18:51 → ANH3MEDSUR 19:15
PROVIDERS: Emergency Medicine; Surgery; Admitting Provider Internal Medicine; Emergency Provider Nurse Practitioner Family; Visit Provider Physician Assistant
PROC: 0FT44ZZ Resection of Gallbladder, Percutaneous Endoscopic Approach (ICD-10-PCS; CPT 47562; principal; 2021-11-13 15:00)
DX: K80.00 Calculus of gallbladder with acute cholecystitis without obstruction (principal); R42 Dizziness and giddiness; E78.5 Hyperlipidemia, unspecified; K21.9 Gastro-esophageal reflux disease without esophagitis; I10 Essential (primary) hypertension; Z87.891 Personal history of nicotine dependence; N40.0 Benign prostatic hyperplasia without lower urinary tract symptoms; M54.2 Cervicalgia; G89.29 Other chronic pain
CPT/HCPCS: 47563; 36415; 70450; 71045; 74177; 74300; 80053; 81003; 83690; 85025; 86850; 86900; 86901; 88304; 93005; 93306; 93880; 96361; 96365; 96374; 99285; A9270; G0378; J1100; J1885; J2405; J2543; J2704; J2710; J3010; J7030; J7120; Q9966; Q9967

== ENCOUNTER 2024-03-03 11:48 | Emergency (ER) | payer OTHER, MEDICARE, SELFPAY ==
--- NOTE | ~2024-03-03 | XR_ITS ---
Left elbow Technique: AP, oblique, and lateral views were obtained. Clinical History: Pain Findings: No acute fracture or dislocation is seen. Osseous alignment is anatomic. Joint spaces are p reserved. There is no displacement of the fat pads, and soft tissues are unremarkable. Impression: Unremarkable radiographs. Reviewed, dictated and finalized at location . Impression: Unremarkable radiographs.
--- NOTE | ~2024-03-03 | XR_ITS ---
Left Shoulder Technique: AP and scapular Y views were obtained. Clinical History: Injury Findings: There is widening of the coracoclavicular and acromioclavicular spaces, compatible with gra de 3 AC joint separation. Possible small avulsion fracture from the coracoid process of the scapula. There is mild glenohumeral joint degenerative change. Soft tissues are unremarkable. Impression: Grade 3 AC joint separation, as above. Possible avulsion fracture from the coracoid process. Reviewed, dictated and finalized at location M. Impression: Grade 3 AC joint separation, as above. Possible avulsion fracture from the coracoid process.
[2024-03-03 12:00] VITALS: BP 184/107; PULSE 80; RESP 18; TEMP 36.8; O2SAT 99
--- NOTE | 2024-03-03 13:25 | ED.FALL ---
HPI - Fall General Chief Complaint: Fall Stated Complaint: FALL Time Seen by Provider: 03/03/24 13:20 Source: patient Mode of arrival: ambulatory Limitations: no limitations History of Present Illness HPI Narrative: This is a 68-year-old male who presents to the ED for chief complaint of a fall today. Reports that he was stepping over a fence when his foot gave out. States he fell onto left side and injured the left elbow left shoulder. Difficulty with range of motion the shoulder due to pain. Denies numbness, weakness or any further sites of pain or injury. Denies head injury or LOC Related Data Home Medications Medication Instructions Recorded Confirmed carvedilol 25 mg tablet 50 mg PO BID 11/12/21 11/29/21 celecoxib 200 mg capsule 200 mg PO DAILY 11/12/21 11/29/21 cyclobenzaprine 10 mg tablet 10 mg PO TID 11/12/21 11/29/21 docusate sodium 100 mg capsule 100 mg PO DAILY 11/12/21 11/29/21 finasteride 5 mg tablet 5 mg PO DAILY 11/12/21 11/29/21 lidocaine 5 % topical patch 1 patch topical DAILY 11/12/21 11/29/21 nifedipine 30 mg tablet,extended 30 mg PO DAILY 11/12/21 11/29/21 release 24 hr pantoprazole 20 mg tablet,delayed 20 mg PO HS 11/12/21 11/29/21 release rosuvastatin 40 mg tablet 40 mg PO DAILY 11/12/21 11/29/21 tamsulosin 0.4 mg capsule 0.8 mg PO DAILY 11/12/21 11/29/21 Allergies Allergy/AdvReac Type Severity Reaction Status Date / Time moxifloxacin Allergy Unknown Rash Verified 11/28/21 13:08 Review of Systems Review of Systems: All systems as dictated in HPI [facility] Past Medical History Medical History BPH (benign prostatic hyperplasia) Chronic neck pain GERD (gastroesophageal reflux disease) Hyperlipidemia Hypertension Surgical History Surgical History History of prostate surgery History prostate surgery x 2 ( first surgery sounds like HoLEP with laser removal of a portion of his prostate, and he is unsure what the second surgery was but states they cut a portion of his prostate out differently) History of shoulder surgery History of surgery on lower extremity Hx laparoscopic cholecystectomy 11/13/21 Family History Family History Mother Cancer Social History Social History Smoking packs per day: 1.5 Smoking cigarettes per day: 30.0 Smoking status: Former smoker Tobacco type: cigarettes Second hand tobacco smoke exposure: No Smoking end date: 06/29/10 Alcohol intake: current Drinks per week: 1 Alcohol use details: drinks 2 peppermint schnapps daily Substance use: never Living arrangements: alone Spiritual care concerns: No Exam Narrative: GENERAL: Well-appearing, well-nourished, and in no acute distress. HEAD: Normocephalic, atraumatic. MSK: LUE: Difficulty with range of motion of the left shoulder. No deformity. Neurovascular intact distally. Tenderness at the AC joint. Mild left elbow tenderness with mild swelling and abrasions. No deformity at the elbow. RUE: benign SKIN: Warm, dry, no rash. NEURO: Alert and oriented x4. No focal deficits. PSYCH: Normal mood and affect. Course Vital Signs Vital signs: Vital Signs Temperature 98.2 F 03/03/24 12:00 Pulse Rate 80 03/03/24 12:00 Respiratory Rate 18 03/03/24 12:00 Blood Pressure 184/107 H 03/03/24 12:00 Pulse Oximetry 99 03/03/24 12:00 Temperature 98.2 F 03/03/24 12:00 Pulse Rate 80 03/03/24 12:00 Respiratory Rate 18 03/03/24 12:00 Blood Pressure 184/107 H 03/03/24 12:00 Pulse Oximetry 99 03/03/24 12:00 MDM - Fall MDM Narrative Medical decision making narrative: This is a 68-year-old male who presents to the ED for chief complaint of left shoulder injury after tripping over a fence. Vitals are normal. Exam rev
[2024-03-03] MEDS: HYDROcodone/acetaminophen (*CRX) 5-325 MG TABLET 1 TAB PO (13:42)
== END 2024-03-03 13:56 | disposition home or self-care (01) ==
LOC: ANHED 13:46
PROVIDERS: Emergency Provider Physician Assistant
DX: S43.52XA Sprain of left acromioclavicular joint, initial encounter (principal); W18.30XA Fall on same level, unspecified, initial encounter; K21.9 Gastro-esophageal reflux disease without esophagitis; E78.5 Hyperlipidemia, unspecified; I10 Essential (primary) hypertension; Z87.891 Personal history of nicotine dependence
CPT/HCPCS: 73030; 73080; 99284; A4565; A9270